=== PATIENT | female | born 1990 | race Caucasian/White ===

== ENCOUNTER 2019-05-21 15:29 | Emergency (ER) | payer SELFPAY ==
[~2019-05-21] VITALS: Ht 165.1 cm; Wt 83.9 kg
[2019-05-21 16:14] VITALS: BP 153/72
--- NOTE | 2019-05-21 16:19 | NUR ---
urine cup handed to pt for sample
[2019-05-21 16:49] LABS: APPEARANCE,URINE CLEAR (CLEAR); BILIRUBIN,URINE NEGATIVE (NEGATIVE); BLOOD, URINE NEGATIVE (NEGATIVE); COLOR,URINE YELLOW (YELLOW); LEUKOCYTE ESTERASE ,URINE NEGATIVE (NEGATIVE); NITRITE, URINE NEGATIVE (NEGATIVE); UGLUCOSE NEGATIVE (NEGATIVE)
--- NOTE | 2019-05-21 16:55 | NUR ---
PT TAKEN TO BED 1.
--- NOTE | 2019-05-21 17:00 | NUR ---
c/o repeated n/v ----12 wks iup LMP 02/24/2019 ref by for poss dehydration hx--denies rx---, zofran . DENIES DIARRHEA; SKIN IS PINK/WARM/DRY; AAOX4 WITH EVEN AND STEADY GAIT; LUNGS CLEAR BL; HR EVEN AND REGULAR; PT DENIES ANY FEVER, CP, SOB, OR COUGH AT THIS TIME; PATIENT STATES PAIN OF 0/10 AT THIS TIME; VSS; PATIENT POSITIONED FOR COMFORT; HOB ELEVATED; BEDRAILS UP X2; BED DOWN. ER MD MADE AWARE OF PT STATUS.
[2019-05-21] MEDS ORDERED: NACL 0.9% 1,000 ML IV ONE (17:15)
[2019-05-21] MEDS ORDERED: ONDANSETRON 4 MG/2 ML VIAL IVP ONE (17:15)
[2019-05-21 18:00] LABS: BASOPHILS % (AUTO) 0.1 % (0.0-2.0); EOSINOPHILS % (AUTO) 0.4 % (0.0-4.0); HEMATOCRIT 39.8 % (36-48); HEMOGLOBIN 12.9 g/dL (12.0-16.0); LYMPHOCYTES # (AUTO) 1.8 K/uL (2.5-16.5); LYMPHOCYTES % (AUTO) 19.4 % (20.5-51.1); MEAN CORPUSCULAR HEMOGLOBIN 31 pg (27-31); MEAN CORPUSCULAR HGB CONC 33 g/dL (33-37); MEAN CORPUSCULAR VOLUME 93.9 fL (80-94); MONOCYTES # (AUTO) 0.5 K/uL (0.8-1.0); MONOCYTES % (AUTO) 5.4 % (1.7-9.3); NEUTROPHILS # (AUTO) 7.1 K/uL (1.8-7.7); NEUTROPHILS % (AUTO) 74.7 % (42.2-75.2); PLATELET COUNT (AUTO) 270 K/uL (140-450); RED BLOOD CELL COUNT(AUTO) 4.24 MIL/uL (4.20-5.40); RED CELL DISTRIBUTION WIDTH 12.2 % (11.6-13.7); WHITE BLOOD COUNT (AUTO) 9.5 K/uL (4.8-10.8)
[2019-05-21 18:15] LABS: ANION GAP 13.1 (8-16); CARBON DIOXIDE 25.7 mmol/L (21-32); CREATININE 0.6 mg/dL (0.6-1.3); POTASSIUM 3.8 mmol/L (3.5-5.1)
--- NOTE | 2019-05-21 18:28 | NUR ---
PT STATED SHE FEELS MUCH BETTER.
--- NOTE | 2019-05-21 18:29 | NUR ---
Dr. Marion is evaluating the patient at bedside.
--- NOTE | 2019-05-21 19:10 | NUR ---
ENDORSED TO PM SHIFT RN.
--- NOTE | 2019-05-21 19:14 | NUR ---
Dr. Milligan examining patient.
--- NOTE | 2019-05-21 19:35 | NUR ---
PATIENT ALERT AND ORIENTED, BREATHING EVEN AND UNLABORED
[2019-05-21 20:20] VITALS: BP 144/78
--- NOTE | 2019-05-21 20:20 | NUR ---
Patient discharged with v/s stable. Written and verbal after care instructions given and explained. Patient alert, oriented and verbalized understanding of instructions. Ambulatory with steady gait. All questions addressed prior to discharge. ID band removed. Patient advised to follow up with PMD. Rx of TAMIFLU WAS given. Patient educated on indication of medication including possible reaction and side effects. Opportunity to ask questions provided and answered. PT STATED THAT SHE WAS " FEELING BETTER" AND WANTED TO GO HOME. STAFF LET HER KNOW THAT IF SHE HAD ANY CONCERNS REGARDING ANY PAIN OR DISCOMFORT TO LET THEM KNOW SO THE NIGHT MD CAN SEE HER. PT REFUSED. PT STATED AGAIN SHE HAS MINIMAL PAIN OF 3/10 AND WANTS TO GO HOME. LET PT KNOW TO COME BACK TO ER IF STATUS CHANGES.
== END 2019-05-21 20:20 | disposition home or self-care (01) ==
LOC: MED 15:29
DX: O21.8 Other vomiting complicating pregnancy (principal); O99.511 Diseases of the respiratory system complicating pregnancy, first trimester; J11.1 Influenza due to unidentified influenza virus with other respiratory manifestations; Z88.5 Allergy status to narcotic agent
CPT/HCPCS: 36415; 80048; 81003; 85025; 87804; 96361; 96374; 99283; J2405; J7030

== ENCOUNTER 2019-12-07 09:35 | Inpatient (IN) | payer BC ==
[~2019-12-07] VITALS: Ht 162.6 cm; Wt 104.3 kg
[2019-12-07] MEDS ORDERED: PNV91TAB8 PO (09:51)
--- NOTE | 2019-12-07 09:53 | NUR ---
PATIENT HAS BEEN SCREENED AND CATEGORIZED LOW NUTRITION RISK. PATIENT WILL BE SEEN WITHIN 7 DAYS OF ADMISSION. 12/13/[address]
[2019-12-07] MEDS ORDERED: LACTATED RINGERS 1,000 ML IV SCH (10:39)
[2019-12-07] MEDS ORDERED: PROMETHAZINE 25 MG/ML VIAL IVP PRN (10:40)
[2019-12-07] MEDS ORDERED: PROMETHAZINE 25 MG/ML VIAL ONE (10:40)
[2019-12-07] MEDS ORDERED: MORPHINE SULFATE 10 MG/ML VIAL ONE (10:40)
[2019-12-07] MEDS ORDERED: AMPICILLIN 2,000 MG in NACL 0.9% MINI-BAG PLUS 100 ML IV SCH (10:40)
[2019-12-07] MEDS ORDERED: METHYLERGONOVINE 0.2 MG/ML AMP IM PRN ×2 (10:40→20:55)
[2019-12-07] MEDS ORDERED: AMPICILLIN 2,000 MG VIAL ONE (10:40)
[2019-12-07] MEDS ORDERED: CARBOPROST 250 MCG/ML AMP IM PRN (10:40)
[2019-12-07] MEDS ORDERED: OXYTOCIN 20 UNITS in LACTATED RINGERS 1,000 ML IV SCH (10:45)
[2019-12-07 11:09] LABS: BASOPHILS # (AUTO) 0.1 K/uL (0.00-0.22); BASOPHILS % (AUTO) 0.3 % (0.0-2.0); HEMATOCRIT 37.1 % (36-48); HEMOGLOBIN 11.8 g/dL (12.0-16.0); LYMPHOCYTES # (AUTO) 1.1 K/uL (2.5-16.5); LYMPHOCYTES % (AUTO) 5.8 % (20.5-51.1); MEAN CORPUSCULAR HEMOGLOBIN 27 pg (27-31); MEAN CORPUSCULAR HGB CONC 32 g/dL (33-37); MEAN CORPUSCULAR VOLUME 83.9 fL (80-94); MONOCYTES # (AUTO) 1.1 K/uL (0.8-1.0); NEUTROPHILS # (AUTO) 16.5 K/uL (1.8-7.7); NEUTROPHILS % (AUTO) 87.9 % (42.2-75.2); PLATELET COUNT (AUTO) 279 K/uL (140-450); RED BLOOD CELL COUNT(AUTO) 4.42 MIL/uL (4.20-5.40); RED CELL DISTRIBUTION WIDTH 15.4 % (11.6-13.7); WHITE BLOOD COUNT (AUTO) 18.8 K/uL (4.8-10.8)
[2019-12-07 11:14] LABS: APPEARANCE,URINE CLEAR (CLEAR); BILIRUBIN,URINE 1+ (NEGATIVE); BLOOD, URINE 3+ (NEGATIVE); COLOR,URINE YELLOW (YELLOW); LEUKOCYTE ESTERASE ,URINE 2+ (NEGATIVE); NITRITE, URINE NEGATIVE (NEGATIVE); UGLUCOSE NEGATIVE (NEGATIVE)
[2019-12-07] MEDS ORDERED: OXYTOCIN 20 UNITS/LR PREMIX 1,000 ML IV ONE (11:16)
[2019-12-07 11:38] LABS: WBC,URINE 20-60 /HPF (0-5)
[2019-12-07 11:56] VITALS: BP 139/90
[2019-12-07] MEDS ORDERED: AMPICILLIN 1,000 MG in NACL 0.9% MINI-BAG PLUS 50 ML IV SCH (12:00)
[2019-12-07] MEDS ORDERED: ROPIVACAINE 0.2%/NS PREMIX 200 ML EPI ONE (12:17)
[2019-12-07 12:41] LABS: ALBUMIN 2.5 g/dL (3.4-5.0); ANION GAP 20.8 (8-16); CARBON DIOXIDE 19.2 mmol/L (21-32); CREATININE 0.9 mg/dL (0.6-1.3); TOTAL BILIRUBIN 0.6 mg/dL (0.0-1.0)
[2019-12-07] MEDS ORDERED: AMPICILLIN 1,000 MG VIAL ONE (14:42)
[2019-12-07] MEDS: CLINDAMYCIN 900 MG in DEXTROSE 5% 100 ML IV SCH (17:48)
[2019-12-07] MEDS ORDERED: CALCIUM CARBONATE 500 MG TAB.CHEW PO SCH (19:20)
[2019-12-07] MEDS ORDERED: GENTAMICIN 100 MG in DEXTROSE 5% 100 ML IV SCH (19:55)
[2019-12-07] MEDS ORDERED: GENTAMICIN PER PHARMACY MC PRN ×2 (19:55→21:35)
[2019-12-07] MEDS ORDERED: GENTAMICIN 80 MG/2 ML VIAL ONE (20:17)
[2019-12-07] MEDS ORDERED: SIMETHICONE 80 MG TAB.CHEW PO PRN (20:55)
[2019-12-07] MEDS ORDERED: DOCUSATE SODIUM 100 MG GELCAP PO PRN (20:55)
[2019-12-07] MEDS ORDERED: bisacodyL 5 MG TABEC PO PRN (20:55)
[2019-12-07] MEDS ORDERED: BENZOCAINE/MENTHOL 20%-0.5% 60 GM CAN TP PRN (20:55)
[2019-12-07] MEDS ORDERED: IBUPROFEN 600 MG TAB PO PRN ×2 (20:55)
[2019-12-07] MEDS ORDERED: METHYLERGONOVINE 0.2 MG TAB PO PRN (20:55)
[2019-12-07] MEDS ORDERED: MEASLES, MUMPS, AND RUBELLA 1 VIAL SQVAC PRN (20:55)
[2019-12-07] MEDS ORDERED: OXYTOCIN 10 UNITS/ML VIAL IM PRN (20:55)
[2019-12-08] MEDS: CLINDAMYCIN 900 MG in DEXTROSE 5% 100 ML IV SCH ×4 (01:55→21:15)
[2019-12-08] MEDS ORDERED: CLINDAMYCIN 900 MG in DEXTROSE 5% 100 ML IV SCH (05:00)
[2019-12-08 09:09] LABS: HEMATOCRIT 31.5 % (36-48)
[2019-12-08] MEDS: IBUPROFEN 800 MG TAB PO PRN ×2 (09:41→19:58)
[2019-12-08] MEDS: GENTAMICIN 120 MG in DEXTROSE 5% 100 ML IV SCH ×2 (13:23→21:32)
[2019-12-08 15:32] LABS: BASOPHILS % (AUTO) 0.3 % (0.0-2.0); EOSINOPHILS % (AUTO) 0.1 % (0.0-4.0); HEMATOCRIT 30.9 % (36-48); HEMOGLOBIN 9.8 g/dL (12.0-16.0); LYMPHOCYTES # (AUTO) 2.6 K/uL (2.5-16.5); LYMPHOCYTES % (AUTO) 14.3 % (20.5-51.1); MEAN CORPUSCULAR HEMOGLOBIN 27 pg (27-31); MEAN CORPUSCULAR HGB CONC 32 g/dL (33-37); MONOCYTES # (AUTO) 1.1 K/uL (0.8-1.0); MONOCYTES % (AUTO) 6.2 % (1.7-9.3); NEUTROPHILS # (AUTO) 14.5 K/uL (1.8-7.7); NEUTROPHILS % (AUTO) 79.1 % (42.2-75.2); PLATELET COUNT (AUTO) 224 K/uL (140-450); RED BLOOD CELL COUNT(AUTO) 3.68 MIL/uL (4.20-5.40); RED CELL DISTRIBUTION WIDTH 15.6 % (11.6-13.7); WHITE BLOOD COUNT (AUTO) 18.3 K/uL (4.8-10.8)
[2019-12-09] MEDS: CLINDAMYCIN 900 MG in DEXTROSE 5% 100 ML IV SCH ×2 (02:37→10:38)
[2019-12-09] MEDS ORDERED: GENTAMICIN 80 MG/2 ML VIAL ONE (05:52)
[2019-12-09] MEDS: GENTAMICIN 120 MG in DEXTROSE 5% 100 ML IV SCH (06:39)
[2019-12-09 12:33] LABS: BASOPHILS % (AUTO) 0.2 % (0.0-2.0); EOSINOPHILS # (AUTO) 0.1 K/uL (0-0.4); EOSINOPHILS % (AUTO) 0.6 % (0.0-4.0); HEMATOCRIT 31.5 % (36-48); HEMOGLOBIN 10.1 g/dL (12.0-16.0); LYMPHOCYTES # (AUTO) 1.9 K/uL (2.5-16.5); LYMPHOCYTES % (AUTO) 14.6 % (20.5-51.1); MEAN CORPUSCULAR HEMOGLOBIN 27 pg (27-31); MEAN CORPUSCULAR HGB CONC 32 g/dL (33-37); MEAN CORPUSCULAR VOLUME 84.5 fL (80-94); MONOCYTES # (AUTO) 0.7 K/uL (0.8-1.0); MONOCYTES % (AUTO) 5.4 % (1.7-9.3); NEUTROPHILS # (AUTO) 10.1 K/uL (1.8-7.7); NEUTROPHILS % (AUTO) 79.2 % (42.2-75.2); PLATELET COUNT (AUTO) 225 K/uL (140-450); RED BLOOD CELL COUNT(AUTO) 3.72 MIL/uL (4.20-5.40); RED CELL DISTRIBUTION WIDTH 15.4 % (11.6-13.7); WHITE BLOOD COUNT (AUTO) 12.8 K/uL (4.8-10.8)
[2019-12-09 14:03] LABS: ANION GAP 16.5 (8-16); CARBON DIOXIDE 22.5 mmol/L (21-32)
[2019-12-09 14:04] LABS: CREATININE 0.8 mg/dL (0.6-1.3)
== END 2019-12-09 18:30 | disposition home or self-care (01) | DRG 807 ==
LOC: MLD 09:35 → MFCC 21:29
PROVIDERS: ADMIT Obstetrics & Gynecology; ATTEND Obstetrics & Gynecology
PROC: 10E0XZZ Delivery of Products of Conception, External Approach (ICD-10-PCS; principal; 2019-12-07)
PROC: 3E0R3BZ Introduction of Anesthetic Agent into Spinal Canal, Percutaneous Approach (ICD-10-PCS; 2019-12-07)
PROC: 00HU33Z Insertion of Infusion Device into Spinal Canal, Percutaneous Approach (ICD-10-PCS; 2019-12-07)
DX: O13.4 Gestational [pregnancy-induced] hypertension without significant proteinuria, complicating childbirth (principal); Z37.0 Single live birth; O63.9 Long labor, unspecified; O86.12 Endometritis following delivery; Z3A.40 40 weeks gestation of pregnancy; O90.81 Anemia of the puerperium; D50.0 Iron deficiency anemia secondary to blood loss (chronic)
CPT/HCPCS: 36415; 51702; 59409; 80048; 80053; 80170; 81001; 85018; 85025; 86592; 86886; 86900; 86901; 87086; J0290; J1580; J2270; J2550; J2590; J2795; J3490; J7060; J7120